=== PATIENT | female | born 1995 | race Caucasian/White ===

== ENCOUNTER 2017-06-03 09:58 | Emergency (ER) | payer OTHER ==
[~2017-06-03] VITALS: Ht 180.3 cm; Wt 65.5 kg
[2017-06-03 10:07] VITALS: TEMP 36.4; Ht 180.3 cm; Wt 65.5 kg
[2017-06-03] MEDS ORDERED: AMOXICILLIN/CLAVULANATE TAB 875 MG TAB PO ONE (10:30)
[2017-06-03] MEDS ORDERED: XYLOCAINE 1%/SOD BICARB 20 ML VIAL INFIL ONE (10:45)
[2017-06-03] MEDS ORDERED: LEVO88TA3 PO (10:56)
[2017-06-03] MEDS ORDERED: BCPILLS PO (10:56)
[2017-06-03] MEDS ORDERED: MONT1TAB3 PO (10:56)
--- NOTE | 2017-06-03 11:01 | DIAGNOSTIC IMAGING REPORT ---
RIGHT WRIST 4 VIEWS CLINICAL HISTORY: Dog bite injury. FINDINGS: 4 views of the right wrist are obtained. No prior studies are available for comparison at the time of dictation. The skeletal structures are well mineralized. No fracture is seen. The joint spaces of the wrist are well-maintained. Mild soft tissue swelling is observed. No radiodense foreign body is identified. IMPRESSION: Mild soft tissue swelling with no radiographic evidence of right wrist fracture. Electronically signed by: Christopher Verdin M.D. 06/03/2017 11:00 AM Dictated Date/Time: 06/03/2017 10:59 AM
[2017-06-03] MEDS ORDERED: AMOX875T PO (11:27)
[2017-06-03 11:33] VITALS: BP 116/71; PULSE 77; O2SAT 98
--- NOTE | 2017-06-03 16:48 | EMERGENCY ROOM VISIT NOTE ---
History Report prepared by Sandra: Ros Barone Under the Supervision of: Dr. Paul Funez M.D. First contact with patient: 10:14 Chief Complaint: BITE Stated Complaint: DOG BITE History of Present Illness The patient is a 22 year old female who presents to the Emergency Room with complaints of an episode of a dog bite occurring about 30-45 minutes IP ATTORNEY. 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 She states that the dog was having abdominal pain and became irritated with her trying to move him. He bit the patient twice on the right wrist. She rates her pain as a 4/10 in severity. Her tetanus is up to date. She denies any chance of . The dog's piercer reported that the dog is rabies vaccinated. The dog is still at the veterinary hospital. Source of History: patient Onset: 30-45 minutes IP ATTORNEY Position: wrist (right) Symptom Intensity: 4/10 Timing: other (episode) Note: Pt denies chance of . Review of Systems See HPI for pertinent positives & negatives. A total of 4 systems reviewed and were otherwise negative. Past Medical & Surgical Medical Problems: (1) No significant past medical history Family History No pertinent history stated. Social History Smoking Status: Never Smoker Smokeless Tobacco Use: No Occupation Status: employed Current/Historical Medications Scheduled Amoxicillin & Pot Clavulanate (Augmentin 875-125 mg), 875 MG PO BID Control Pills ( Control Pills), 1 TAB PO DAILY Levothyroxine Sodium (Levothyroxine Sodium), 1 TAB PO DAILY Montelukast Sodium (Singulair), 10 MG PO DAILY Allergies Coded Allergies: No Known Allergies (Unverified , 06/03/17) Physical Exam Vital Signs Date Time Temp Pulse Resp B/P (MAP) Pulse Ox O2 Delivery O2 Flow Rate FiO2 06/03/17 11:33 77 16 116/71 98 06/03/17 10:07 36.4 71 18 121/79 99 Room Air Physical Exam Constitutional: Vital signs reviewed. Respiratory: Clear to auscultation bilaterally. Breath sounds are equal bilaterally. Cardiovascular: Regular rate and rhythm. No rubs or gallops. GI: Soft, nondistended and nontender. Bowel sounds are present. Musculoskeletal: There are 6 puncture wounds to the dorsum of the right wrist, the largest being about 1 cm over the distal ulna and one on the dorsum of the right hand. There is one puncture wound to the volar aspect of the wrist without any evidence of tendon injury through ROM. Integumentary: As above. Neurological: The patient is awake and alert. No focal deficits. Psychiatric: Normal affect. Medical Decision & Procedures ER Provider Diagnostic Interpretation: Radiology results as stated below per my review and the radiologist's interpretation: RIGHT WRIST 4 VIEWS CLINICAL HISTORY: Dog bite injury. FINDINGS: 4 views of the right wrist are obtained. No prior studies are available for comparison at the time of dictation. The skeletal structures are well mineralized. No fracture is seen. The joint spaces of the wrist are well-maintained. Mild soft tissue swelling is observed. No radiodense foreign body is identified. IMPRESSION: Mild soft tissue swelling with no radiographic evidence of right wrist fracture. Electronically signed by: Christopher Verdin M.D. 06/03/2017 11:00 AM Dictated Date/Time: 06/03/2017 10:59 AM Medications Administered Medications (Trade) Dose Ordered Sig/Carlos Route Start Time Stop Time Status Last Admin Dose Admin Amoxicillin/ Clavulanate Potassium (Augmentin Tab) 875 mg ONE ONCE PO 06/03/17 10:30 06/03/17 10:31 DC 06/03/17 10:58 875 MG Lidocaine HCl (Buffered Lidocaine 1% Inj) 20 ml ONE ONCE INFIL 06/03/17 10:45 06/03/17 10:46 DC 06/03/17 10:45 20 ML Procedure Laceration repair. Location: distal right ulna Total length: 1 cm Complexity: simple Verbal consent was obtained. At this time, the risks of the procedure are less than the risks of NOT performing the procedure. A time out was taken and the correct patient and site identified. Copious irrigation was performed using NSS. The wound was explored for foreign bodies and none found. Examination revealed no injury to deep structures such as tendons, bone, or significant blood vessels. Debridement was not performed. The wound edges were approximated using 1, 4-0 simple Ethilon suture after some fat debridement. Hemostasis and excellent approximation was achieved. Antibacterial ointment and a sterile dressing applied. Wound care instructions and signs and symptoms of infection reviewed with the patient. No complications and the patient tolerated the procedure well. ED Course 1014: The patient was evaluated in room A4B. A complete history and physical exam was performed. 1030: Augmentin tab 875 mg PO 1109: I performed a laceration repair at this time. Please see the procedure note above for further details. 1127: I reassessed the patient at this time. She is feeling better and resting comfortably. I discussed the results and treatment plan with the patient. I answered all pertaining questions that she had. She expressed understanding and verbalized agreement. The patient will be discharged home. Medical Decision This is a 22-year-old female who presents with a dog bite. I did perform a limited focused review of portions of the patient's old chart on the electronic medical record. The patient has had no prior visits to this hospital. I did evaluate patient as noted above. I did obtain an x-ray of the right wrist which did not demonstrate any evidence of foreign body or bony involvement. I did copiously irrigate all wounds. I did examine all wounds for any evidence of tendon injury. There was no evidence of tendon injury or deep structure injury. As most of these are puncture wounds I did not feel that repair was indicated. There was one laceration with fat extruding from the wound in the distal ulna that was measuring [address] 1 suture in that wound. The patient was discharged with Augmentin and given her first dose here. She will follow with her doctor. She was given return instructions as outlined below. Medication Reconcilliation Current Medication List: was personally reviewed by me Blood Pressure Screening Patient's blood pressure: Elevated blood pressure Blood pressure disposition: Elevated BP felt to be situational Impression Primary Impression: Dog bite Additional Impression: Laceration of right wrist Scribe Attestation The scribe's documentation has been prepared under my direct and personally reviewed by me in its entirety. I confirm that the note above accurately reflects all work, treatment, procedures, and medical decision making performed by me. Departure Information Dispostion Home / Self-Care Prescriptions Amoxicillin & Pot Clavulanate (Augmentin 875-125 mg) 1 Tab Tab 875 MG PO BID for 7 Days, #14 TAB Prov: Paul Funez M.D. 06/03/17 Referrals No Doctor, Assigned (PCP) Forms HOME CARE DOCUMENTATION FORM, IMPORTANT VISIT INFORMATION Patient Instructions ED Bite Dog, My [facility] Additional Instructions You have been examined and treated today on an emergency basis only. This is not a substitute for, or an effort to provide, complete comprehensive medical care. It is impossible to recognize and treat all injuries or illnesses in a single emergency department visit. It is therefore important that you follow up closely with your physician. Call as soon as possible for an appointment. Return for worsening symptoms or if you develop fever or any other concerning symptoms. Clean and dress your wounds daily and look for any signs of infection such as redness, discharge or severe pain. Your suture needs to be removed in 10 days. Problem Qualifiers Primary Impression: Dog bite Encounter type: initial encounter Qualified Codes: W54.0XXA - Bitten by dog , initial encounter Additional Impression: Laceration of right wrist Encounter type: initial encounter Qualified Codes: S61.511A - Laceration without foreign body of right wrist, initial encounter
== END 2017-06-03 11:34 | disposition home or self-care (01) ==
LOC: C.EDB 10:00 → C.EDA 11:34
DX: S61.511A Laceration without foreign body of right wrist, initial encounter (principal); W54.0XXA Bitten by dog, initial encounter